=== PATIENT | female | born 1965 | race Caucasian/White ===

== ENCOUNTER → 2016-11-12 | Outpatient (CLI) | payer OTHER ==
[~2016-11-12] VITALS: Ht 160 cm; Wt 86.5 kg
[~2016-11-12] MED LIST: ADVIN25050 INH; ALBU1AER9 INH; AZEL137S6 NAE; FLNIN NAE; HYDR1LOT6 TD; IBUP-1277 PO; NAPR500T3 PO; PRLSR20 PO; TRAM-10 PO
[2016-11-12 14:42] VITALS: BP 137/83; PULSE 82; Ht 160 cm; Wt 86.5 kg
== END | disposition home or self-care (01) ==
LOC: C.NEUR 14:17
PROVIDERS: ATTEND Internal Medicine Pulmonary Disease
DX: G47.33 Obstructive sleep apnea (adult) (pediatric) (principal)

== ENCOUNTER → 2017-02-11 | Outpatient (CLI) | payer OTHER ==
[~2017-02-11] VITALS: Ht 160 cm; Wt 83.4 kg
[2017-02-11 15:23] VITALS: BP 117/78; PULSE 89; Ht 160 cm; Wt 83.4 kg
== END | disposition home or self-care (01) ==
LOC: C.NEUR 15:09
PROVIDERS: ATTEND Physician Assistant
DX: G47.33 Obstructive sleep apnea (adult) (pediatric) (principal)

== ENCOUNTER → 2017-04-12 | Outpatient (CLI) | payer OTHER ==
[~2017-04-12] VITALS: Ht 160 cm; Wt 82.6 kg
[2017-04-12 16:21] VITALS: BP 123/81; PULSE 83; Ht 160 cm; Wt 82.6 kg
== END | disposition home or self-care (01) ==
LOC: C.NEUR 15:19
PROVIDERS: ATTEND Physician Assistant
DX: G47.33 Obstructive sleep apnea (adult) (pediatric) (principal)

== ENCOUNTER → 2017-05-21 | Outpatient (CLI) | payer OTHER ==
--- NOTE | 2017-05-22 06:00 | PAP/PSG TECHNICIAN REPORT ---
[facility] Linting Machine Operator Polysomnogram Report Study name: None Report date: 05/22/2017 Study date: 05/21/2017 Referring Physician: DR. ROBLERO Name: RUBY MEJIAS Interpreting Physician: Charles Roblero M.D. Date of : 1965 Linting Machine Operator: Paula Kapadia, PSGT. Sex: Female Age: 52 StudyType: PSG Weight: 182 lbs Height: 52 years, Height 5' 3" : BMI: 32.24 Medications: OMEPRAZOLE 20 MG,FLUTICASONE 50 MCG, ADVAIR. Patient History 52 yr. old female that has used auto c-pap with a nasal mask for a couple of years. She states that she still feels unrefreshed when she wakes. Her sleep schedule varies she will get 3- 4 hours a night .Ess = 10, Parameters Monitored NPSG: E1-M2, E2-M1, Fp1-M2, Fp2-M1, F3-M2, F4-M2, F4-M1, C3-M2, C4-M2, C4-M1, O1-M2, O2-M2, O2-M1, T3-M2, T4-M1, P3-M2, P4-M1, CHIN1, CHIN2, HR, EKG, Legs, PFLOW, SNOR, FLOW, CFLOW, Tidal Volume, THOR, ABDO, SpO2, PLTH, CPRESS, ETCO2 Wave, ETCO2, pH Sleep Architecture Sleep Stages Time at Lights Off 10:21:38 PM STAGES Time (min.) TST (%) Time at Lights On 5:17:38 AM Wake 34.0 -- Total Recording Time (TRT) 417.00 min. N1 4.5 1 Total Sleep Period (TSP) 406.5 min. N2 310.0 81 Total Sleep Time (TST) 382.0min. N3 7.5 2 Awake Time 34.0 min. REM 60.0 16 Wake after Sleep Onset 24.5 min. Sleep Efficiency (SE) 92 % Sleep Onset Latency (JUAN PABLO) 9.5 min. Number of Stage 1 Shifts None Awakenings 6 Stage Changes 30 Number of REM periods 5 REM 60.0 16 REM Latency 52.5 min. NREM 322.0 84 Body Position Analysis Supine Right Left Side Prone Vertical Total Sleep Time (min.) 230.6 148.8 0.0 148.83 0.0 25.0 Total Sleep Time (%) 57% 39% 0% 39 0% 100% Total Sleep Time REM (min.) 26.9 33.1 0.0 None 0.0 0.0 Total Sleep Time NREM (min.) 191.3 115.7 0.0 None 0.0 15.0 Intermittent Wake (min.) 12.4 11.6 0.0 None 0.0 10.0 Total Sleep Period (%) 57% None None None None None Arousals Myoclonus (PLM) * Events Count Index Events Count Index Spontaneous 30 5 Events Awake (PLMW) 1 1.8 Respiratory 0 0.0 Events Asleep w/ Arousal (PLMA) 10 1.6 PLM 10 2 Events Asleep w/o Arousal (PLMS) 102 16.0 Snoring 3 0 Total Asleep 112 17.6 Total 43 7 Total 113 16 Respiratory Analysis * CA OA MA CH H RERA Total Count 0 0 0 0 6 0 6 Index 0.0 0.0 0.0 0 0.9 0 0.9 Mean Duration 0.0 0.0 0.0 0.00 20.4 0.0 20.4 Longest Duration 0.0 0.0 0.0 0.00 0.0 0.0 30.3 Respiratory Event Summary Total Supine ~Supine Right Left Prone REM NREM Apneas Count 0 0 0 0 N/A N/A 0 0 Index 0.0 0 0 0.0 N/A N/A 0 0 Hypopneas (4% Desat) Count 6 4 2 1 N/A N/A 0 6 Index 0.9 1.1 1 0.4 N/A N/A 0.0 1.1 Apneas & All Hypopneas Count 6 4 2 1 N/A N/A 0 6 Index 0.9 1 1 0 N/A N/A 0.0 1.1 Respiratory Events (Licensed Pharmacist+All Hyp+RERA) Count 6 4 2 1 N/A N/A 0 6 Index 0.9 1 1 0.4 N/A N/A 0.0 1.1 Respiratory Related Arousal Count 0 4 0 0 N/A N/A 0 0 Index 0.0 0 0 0 N/A N/A 0 0 Snoring Analysis Supine Right Left Prone REM NREM Total Snore duration 2.8 min Snores count 65 11 N/A N/A 7 71 78 Snore mean duration 2.1 Sec Snores index 18 4 N/A N/A 7.0 13.2 12.3 TST with snoring (%) 0.7% Desaturation Event Summary: Minimum %SpO2 Event Count Mean/Min/Max Duration(sec.) Desaturation Index % Time In Bed > 90 19 23.1 / 6.3 / 55.3 2.8 99.5 86 - 90 1 6.3 / 6.3 / 6.3 31.4 0.5 81 - 85 0 N/A 0.0 0.0 76 - 80 0 N/A 0.0 0.0 71 - 75 0 N/A 0.0 0.0 66 - 70 0 N/A 0.0 0.0 61 - 65 0 N/A 0.0 0.0 56 - 60 0 N/A 0.0 0.0 51 - 55 0 N/A 0.0 0.0 < 50 0 N/A 0.0 0.0 Total REM NREM Awake <50% 0.0 min. 0.0 min. 0.0 min. 0.0 min. 51 - 60% 0.0 min. 0.0 min. 0.0 min. 0.0 min. 61 - 70% 0.0 min. 0.0 min. 0.0 min. 0.0 min. 71 - 80% 0.0 min. 0.0 min. 0.0 min. 0.0 min. 81 - 90% 1.9 min. 0.0 min. 1.9 min. 0.0 min. 91 - 100% 413.1 min. 60.0 min. 319.6 min. 33.5 min. Average 93 95 93 95 Minimum SpO2 88 92 88 90 Desaturation Event Index 2.7 1.0 3.4 0.0 # Desat. Events below 89% 1 N/A 1 N/A Time(%) with Saturation below 89% 0.0 0.0 0.0 0.0 Time(min.) with Saturation below 89% 0.1 0.0 0.1 0.0 Heart Rate Analysis End Tidal CO2 Analysis Min (bpm) Max (bpm) Average (bpm) TSP (mins) % of TSP Awake 45 94 59 Above 55 mmHg 0.0 0.0 NREM 43 90 53 50-55 mmHg 0.0 0.0 REM 48 85 58 45-50 mmHg 382.0 100.0 Overall 43 90 54 40-45 mmHg 0.0 0.0 35-40 mmHg 0.0 0.0 30-35 mmHg 0.0 0.0 Average ETCO2 0.0 Supplemental O2 Values Minimum O2 level: None Value Start Time End Time Linting Machine Operator Comments PAP Study: slept in the right, left, and supine positions. No cardiac arrhythmia or PLM's noted. No bruxism noted. CPAP was initiated at +4 CMH2O and up-titrated to an optimal level of +5 CMH2O, which nearly eliminated all respiratory events and snoring. A F&P Eson 2, was used during titration awoke to use the restroom zero times during the night. Ms. Mejias stated, I feel like I didn't sleep much at all. The final report will be interpreted and signed by a sleep physician. The completed physician report will then be placed in the patient medical record Therapy Event: Therapy (cm H20) 0 4 5 Total Time at Pressure (min.) 0.6 274.0 141.4 TST at Pressure (min.) 0.0 261.6 120.4 # Periods 1 1 1 Sleep Onset (min.) N/A 8.9 0.0 REM Onset (min.) N/A 61.4 66.9 Sleep Efficiency % 0 95 85 Wakefulness (%) 100.0 4.5 14.9 Wakefulness (min.) 0.6 12.4 21.0 NREM 1 (%) 0.0 0.7 1.8 NREM 1 (min.) 0.0 2.0 2.5 NREM 2 (%) 0.0 81.2 61.8 NREM 2 (min.) 0.0 222.6 87.4 NREM 3 (%) 0.0 2.7 0.0 NREM 3 (min.) 0.0 7.5 0.0 REM (%) 0.0 10.8 21.6 REM (min.) 0.0 29.5 30.5 # Arousals N/A 31 12 Arousal Index N/A 7.1 6.0 # Snore N/A 33 45 Snore Index N/A 7.6 22.4 AHI N/A 1.1 0.5 AHI Supine N/A 1.0 1.7 AHI Non-Supine N/A 1.5 0.0 NREM AHI N/A 1.3 0.7 REM AHI N/A 0.0 0.0 RDI N/A 1.1 0.5 # Obstructive N/A 0 0 # Central Ap N/A 0 0 # Mixed N/A 0 0 # Hypopneas N/A 5 1 RERAS N/A 0 0 Total Respiratory Events N/A 5 1 Time Below SpO2 89.00% (min.) 0.0 0.1 0.0 Mean NREM SpO2 (%) N/A 93 94 Mean REM SpO2 (%) N/A 94 95 Mean Sleep SpO2 (%) N/A 93 94 Min NREM SpO2 (%) N/A 88 91 Min REM SpO2 (%) N/A 92 93 Position Supine (min.) 0.0 182.3 35.9 Position Non-supine (min.) 0.0 79.3 84.5 LM Index Sleep N/A 20.6 11.0 LM Index NREM N/A 21.5 13.4 LM Index REM N/A 14.2 3.9 Mean Heart Rate (bpm) N/A 54 53 Min Heart Rate (bpm) N/A 44 43
--- NOTE | 2017-05-23 08:30 | Sleep Study ---
Sleep Study Report Date of Service: May 21, 2017] Sleep Study Report Clinical data: The patient is a 52-year-old female with a BMI of 32.24 referred for a CPAP titration study. She has been using auto CPAP with a nasal mask for several years. Her AHI is still elevated and she still has fatigue and feels non refreshed when she awakens. Her sleep schedule varies and she sometimes only gets 3-4 hours of sleep per night. Her [place] sleepiness Score is elevated at 10/24. Sleep architecture: Total sleep period time was 406.5 minutes. Total sleep time of 382 minutes divided between 322 minutes of non-REM sleep and 60 minutes of REM sleep. Sleep onset latency was 9.5 minutes. REM latency was 52.5 minutes. Sleep efficiency was 92 percent. Wake after sleep onset was 24.5 minutes. Sleep consisted of stage N1 1 percent, stage N2 81 percent, stage N3 2 percent, and REM 16 percent. Arousal data: 43 arousals were recorded for an index of 7 per hour. PLM data: 112 limb movements during sleep were noted for an index of 17.6 per hour with an arousal index of 1.6 per hour. Respiratory data: The AHI was 0.9. There were 6 hypopneas with a mean duration of 20.4 seconds. Oximetry data: No significant hypoxemia was seen. Oxygen maryse was 80 percent. Mean saturation was 93 percent. EKG: Heart rate ranged from 43 to 90 beats per minute. No arrhythmias were noted. Treatment summary: The patient slept in the right, left, and supine positions. She used a F&P Eson 2 mask. She was titrated up to 5 centimeters water pressure. At that level she slept for 120.4 minutes with an AHI of 0.5. Impression: Obstructive sleep apnea corrected with CPAP 5 centimeters water pressure Recommendation: The patient could have her CPAP set 5 centimeters water pressure. She should be seen back in follow-up within 90 days to document efficacy and compliance. Copies To 1: Deborah Jasmine PA-C; Brandyn Robert M.D.
== END | disposition home or self-care (01) ==
LOC: C.NEUR 21:00
PROVIDERS: ATTEND Physician Assistant
DX: G47.33 Obstructive sleep apnea (adult) (pediatric) (principal); E55.9 Vitamin D deficiency, unspecified; E66.9 Obesity, unspecified; R73.01 Impaired fasting glucose

== ENCOUNTER → 2017-06-28 | Outpatient (CLI) | payer OTHER ==
[~2017-06-28] VITALS: Ht 160 cm; Wt 83.7 kg
[2017-06-28 15:22] VITALS: BP 124/78; PULSE 70; Ht 160 cm; Wt 83.7 kg
== END | disposition home or self-care (01) ==
LOC: C.NEUR 13:14
PROVIDERS: ATTEND Physician Assistant
DX: G47.33 Obstructive sleep apnea (adult) (pediatric) (principal); R53.83 Other fatigue; R51 Headache

== ENCOUNTER → 2017-10-16 | Outpatient (CLI) | payer OTHER ==
[2017-10-16 18:11] LABS: HEMATOCRIT 42.3 % (37-47); MEAN CELL VOLUME 82.8 fL (80-100); MEAN CORPUSCULAR HEMOGLOBIN 27.8 pg (25-34); MEAN CORPUSCULAR HGB CONC 33.6 g/dl (32-36); MEAN PLATELET VOLUME 11.2 fL (7.4-10.4); PLATELET COUNT 236 K/uL (130-400); RED BLOOD COUNT 5.11 M/uL (4.2-5.4); WHITE BLOOD COUNT 12.63 K/uL (4.8-10.8)
[2017-10-16 18:33] LABS: ALT/SGPT 36 U/L (12-78); AST/SGOT 13 U/L (15-37); BLOOD UREA NITROGEN 21 mg/dl (7-18); BUN/CREATININE RATIO 25.8 (10-20); CARBON DIOXIDE 24 mmol/L (21-32); CHLORIDE 107 mmol/L (98-107); CHOLESTEROL 239 mg/dl (0-200); CREATININE 0.82 mg/dl (0.60-1.20); GLUCOSE 132 mg/dl (70-99); MAGNESIUM 2.2 mg/dl (1.8-2.4); POTASSIUM 3.9 mmol/L (3.5-5.1); SODIUM 137 mmol/L (136-145)
[2017-10-16 18:43] LABS: ALKALINE PHOSPHATASE 97 U/L (45-117); CHOLESTEROL/HDL RATIO 4.6; FERRITIN 58.5 ng/ml (8.0-388.0); HDL CHOLESTEROL 52 mg/dl; LDL CHOLESTEROL CALCULATED 163 mg/dl; THYROID STIMULATING HORMONE 0.705 uIu/ml (0.300-4.500); TRIGLYCERIDES 122 mg/dl (0-150); VERY LOW DENSITY LIPOPROT CALC 24 mg/dl
[2017-10-16 18:44] LABS: LYME DISEASE AB IGG NEG (NEG)
[2017-10-16 19:11] LABS: LYME DISEASE AB IGM EQUIVOCAL (NEG)
[2017-10-23 09:15] LABS: 18KDIGG BAND NONREACTIVE (NONREACTIVE); 23KDIGG BAND NONREACTIVE (NONREACTIVE); 23KDIGM BAND NONREACTIVE (NONREACTIVE); 28KDIGG BAND NONREACTIVE (NONREACTIVE); 30KDIGG BAND NONREACTIVE (NONREACTIVE); 39KDIGG BAND NONREACTIVE (NONREACTIVE); 39KDIGM BAND NONREACTIVE (NONREACTIVE); 41KDIGG BAND NONREACTIVE (NONREACTIVE); 41KDIGM BAND NONREACTIVE (NONREACTIVE); 45KDIGG BAND NONREACTIVE (NONREACTIVE); 58KDIGG BAND NONREACTIVE (NONREACTIVE); 66KDIGG BAND NONREACTIVE (NONREACTIVE); 93KDIGG BAND NONREACTIVE (NONREACTIVE)
== END | disposition home or self-care (01) ==
LOC: C.LABBFT 15:18
PROVIDERS: ATTEND Nurse Practitioner
DX: R53.83 Other fatigue (principal); R51 Headache; E78.00 Pure hypercholesterolemia, unspecified

== ENCOUNTER → 2018-01-02 | Outpatient (CLI) | payer OTHER ==
[~2018-01-02] VITALS: Ht 160 cm; Wt 87.0 kg
[2018-01-02 13:48] VITALS: BP 122/80; PULSE 79; Ht 160 cm; Wt 87.0 kg
== END | disposition home or self-care (01) ==
LOC: C.NEUR 13:14
PROVIDERS: ATTEND Physician Assistant
DX: G25.81 Restless legs syndrome (principal); G47.33 Obstructive sleep apnea (adult) (pediatric)

== ENCOUNTER → 2018-02-13 | Outpatient (CLI) | payer OTHER ==
[~2018-02-13] MED LIST changes: +NAPR-1231 PO; -NAPR500T3 PO
== END | disposition home or self-care (01) ==
LOC: C.PAPS 13:59
PROVIDERS: ATTEND Physician Assistant
DX: Z12.4 Encounter for screening for malignant neoplasm of cervix (principal); R87.610 Atypical squamous cells of undetermined significance on cytologic smear of cervix (ASC-US); Z78.0 Asymptomatic menopausal state

== ENCOUNTER → 2018-02-13 | Outpatient (CLI) | payer OTHER | END | disposition home or self-care (01) | LOC: C.LABSPEC 13:35 | PROVIDERS: ATTEND Physician Assistant | DX: N89.8 Other specified noninflammatory disorders of vagina (principal) ==